=== PATIENT | male | born 1950 | race Caucasian/White ===

== ENCOUNTER 2017-10-06 03:16 | Emergency (ER) | payer MEDICARE ==
[~2017-10-06] VITALS: Ht 172.7 cm; Wt 119.0 kg
[~2017-10-06 03:16] MED LIST: ASPI-516 CHEW; ASPI81TA11 PO; ATEN-102 PO; ATEN25TA PO; BRIM0.2S EACH EYE; CHOL1TAB42 PO; DORZ1SOL2 EACH EYE; HYDR-2768 PO; HYDR-3580 PO; HYDR25TA5 PO; LATA0.00 EACH EYE; LATA0.002 EACH EYE; LISI40TA PO; MECL12.574 PO; PILO1SOL5 EACH EYE; VITA-13 PO; VITA200017 PO; Z.0.COMMODE-3:1; Z.0.WALKERFRONT; [UNRECOGNIZED DRUG - CODE] EACH EYE
[2017-10-06 03:23] VITALS: BP 157/76; PULSE 72; RESP 18; TEMP 97.4; O2SAT 95
[2017-10-06] MEDS ORDERED: VITA3000 PO (03:44)
[2017-10-06] MEDS ORDERED: BRIM0.2S4 EACH EYE (03:44)
[2017-10-06] MEDS ORDERED: MECL-62 PO (03:44)
[2017-10-06] MEDS ORDERED: AMLO2.5T PO (03:44)
[2017-10-06] MEDS ORDERED: METO25TA3 PO (03:44)
[2017-10-06] MEDS ORDERED: MORPHINE SULFATE 4 MG/ML INJ IV PUSH ONE (04:00)
[2017-10-06] MEDS ORDERED: ONDANSETRON HCL 4 MG/2 ML VIAL IVP ONE (04:00)
--- NOTE | 2017-10-06 04:03 | PD ---
HPI Chief Complaint: Abdominal Pain Time Seen by Provider: 03:45 Travel History International Travel<30 days: No Contact w/Intl Traveler<30days: No Traveled to known affect area: No History of Present Illness HPI 67yo M with PMH of HTN here with c/o abdominal pain since 10:30pm tonight. Said it is associated with nausea and located in epigastric and radiates from upper abdomen to upper scapula area. Said it is more left upper abdomen right right. Denies any fever, vomiting, chest pain, sob, diarrhea, dysuria, hematuria, testicular pain or penile discharge. Said he had similar pain before but not as severe. PFSH Past Medical History Arthritis: Yes Cancer: Yes (SKIN) Cardiovascular Problems: No Diminished Hearing: No Endocrine: No Glaucoma: Yes Genitourinary: No Hepatitis: No Hiatal Hernia: No Hypertension: Yes Immune Disorder: No Musculoskeletal: Yes (ARTHRITIS) Neurologic: No Psychiatric: Yes (ANXIETY) Reproductive: No Respiratory: No Immunizations Current: Yes Thyroid Disease: No Tetanus Vaccination: > 5 Years Influenza Vaccination: Yes ?: Not Past Surgical History AICD: No Body Medical Devices: NONE Eye Surgery: Yes (LASER SURGERY BILATERAL EYES) Joint Replacement: No Oral Surgery: Yes (TONSILLECTOMY) Pacemaker: No Other Surgery: Yes Social History Alcohol Use: No Tobacco Use: Yes (CIGARS/PIPE) Substance Use: No Allergies-Medications (Allergen,Severity, Reaction): Coded Allergies: No Known Allergies (Verified Adverse Reaction, Unknown, 10/06/17) Reported Meds & Prescriptions Reported Meds & Active Scripts Active Reported Brimonidine Opth Drops (Brimonidine Tartrate) 0.2% Soln 1 Drop EACH EYE BID Vitamin D3 (Cholecalciferol) 3,000 Unit Tab 3,000 Units PO DAILY Meclizine (Meclizine HCl) 25 Mg Tab 25 Mg PO DIRECTED PRN Amlodipine (Amlodipine Besylate) 2.5 Mg Tab 2.5 Mg PO DAILY Metoprolol Tartrate 25 Mg Tab 25 Mg PO BID Latanoprost Opth Drops (Latanoprost) 0.005% Drops 1 Drop EACH EYE HS Refrigerate until opened. Pilocarpine Opth 1% (Pilocarpine HCl) 1 % Soln 1 Drop EACH EYE Q6HR Aspirin 81 Mg Chew 81 Mg CHEW DAILY Hydrochlorothiazide 25 Mg Tab 25 Mg PO DAILY Lisinopril 40 Mg Tab 40 Mg PO DAILY Review of Systems Except as stated in HPI: all other systems reviewed are Neg Physical Exam Narrative GENERAL: 67yo M in mild distress. SKIN: Focused skin assessment warm/dry. HEAD: Atraumatic. Normocephalic. CARDIOVASCULAR: Regular rate and rhythm. No murmur appreciated. RESPIRATORY: No accessory muscle use. Clear to auscultation. Breath sounds equal bilaterally. GASTROINTESTINAL: Abdomen soft, +TTP epigastric and LUQ > RUQ. No rebound tenderness or guarding. BACK: No CVA tenderness bilaterally. No ttp bilateral scapula. MUSCULOSKELETAL: No obvious deformities. No clubbing. No cyanosis. No edema. NEUROLOGICAL: Awake and alert. No obvious cranial nerve deficits. Motor grossly within normal limits. Normal speech. PSYCHIATRIC: Appropriate mood and affect; insight and judgment normal. Data Data Last Documented VS Vital Signs Date Time Temp Pulse Resp B/P (MAP) Pulse Ox O2 Delivery O2 Flow Rate FiO2 10/06/17 05:34 77 18 119/59 (79) 95 Nasal Cannula 2.00 10/06/17 03:23 97.4 Orders Orders Complete Blood Count With Diff (10/06/17 03:55) Comprehensive Metabolic Panel (10/06/17 03:55) Lipase (10/06/17 03:55) Prothrombin Time / Inr (Pt) (10/06/17 03:55) Act Partial Throm Time (Ptt) (10/06/17 03:55) Urinalysis - C+S If Indicated (10/06/17 03:55) Ct Abd/Pel W Iv Contrast(Rout) (10/06/17 03:55) Morphine Inj (Morphine Inj) (10/06/17 04:00) Ondansetron Inj (Zofran Inj) (10/06/17 04:00) Iohexol 350 Inj (Omnipaque 350 Inj) (10/06/17 05:36) Morphine Inj (Morphine Inj) (10/06/17 06:00) Labs Laboratory Tests Test 10/06/17 04:03 10/06/17 05:21 White Blood Count 11.8 TH/MM3 Red Blood Count 5.14 MIL/MM3 Hemoglobin 15.4 GM/DL Hematocrit 46.6 % Mean Corpuscular Volume 90.7 FL Mean Corpuscular Hemoglobin 29.9 PG Mean Corpuscular Hemoglobin Concent 32.9 % Red Cell Distribution Width 12.7 % Platelet Count 349 TH/MM3 Mean Platelet Volume 8.2 FL Neutrophils (%) (Auto) 81.2 % Lymphocytes (%) (Auto) 10.5 % Monocytes (%) (Auto) 7.5 % Eosinophils (%) (Auto) 0.4 % Basophils (%) (Auto) 0.4 % Neutrophils # (Auto) 9.7 TH/MM3 Lymphocytes # (Auto) 1.2 TH/MM3 Monocytes # (Auto) 0.9 TH/MM3 Eosinophils # (Auto) 0.0 TH/MM3 Basophils # (Auto) 0.0 TH/MM3 CBC Comment DIFF FINAL Differential Comment Prothrombin Time 10.8 SEC Prothromb Time International Ratio 1.1 RATIO Activated Partial Thromboplast Time 25.3 SEC Blood Urea Nitrogen 18 MG/DL Creatinine 1.30 MG/DL Random Glucose 165 MG/DL Total Protein 8.0 GM/DL Albumin 3.8 GM/DL Calcium Level 9.3 MG/DL Alkaline Phosphatase 87 U/L Aspartate Amino Transf (AST/SGOT) 19 U/L Alanine Aminotransferase (ALT/SGPT) 25 U/L Total Bilirubin 0.5 MG/DL Sodium Level 131 MEQ/L Potassium Level 3.8 MEQ/L Chloride Level 93 MEQ/L Carbon Dioxide Level 34.2 MEQ/L Anion Gap 4 MEQ/L Estimat Glomerular Filtration Rate 55 ML/MIN Lipase 232 U/L Urine Color YELLOW Urine Turbidity CLEAR Urine pH 5.5 Urine Specific [place] GREATER THAN 1.035 Urine Protein NEG mg/dL Urine Glucose (UA) NEG mg/dL Urine Ketones NEG mg/dL Urine Occult Blood NEG Urine Nitrite NEG Urine Bilirubin NEG Urine Leukocyte Esterase NEG Urine WBC 0-2 /hpf Urine Squamous Epithelial Cells 0-5 /hpf Urine Hyaline Casts 3-5 /lpf Urine Mucus OCC /lpf Microscopic Urinalysis Comment CULT NOT INDICATED MDM Medical Decision Making Medical Screen Exam Complete: Yes Emergency Medical Condition: Yes Differential Diagnosis Pancreatitis vs. gastritis vs. peptic ulcer disease Narrative Course 67yo M with abdominal pain tonight. Labs reviewed, WBC 11.8. Mild hyponatremia at 131 which he has had before. Lipase normal. Mildly elevated CO2 which is also his baseline. UA showed no leukocyte. WBC 0-2. Culture not indicated. CT a/p showed moderate gaseous distension of the stomach without evidence for obstruction. Right adrenal adenoma. Atherosclerosis. Pt given morphine and zofran. Pt reevaluated at bedside and pain has improved. Tolerating PO. Return precautions given. Diagnosis Primary Impression: Abdominal pain Qualified Codes: R10.10 - Upper abdominal pain, unspecified Patient Instructions: General Instructions Departure Forms: Tests/Procedures Additional Instructions: Please follow up with your primary care physician in 2-3 days. Return to the ED if symptoms worsen. Med/Other Pt SpecificInfo: Prescription(s) given Scripts Calcium Carbonate-Simethicone (Maalox Advanced Maximum Strength) 1,000-60 Mg Chew 1 TAB CHEW TID Y for INDIGESTION OR UPSET STOMACH for 5 Days, TAB 0 Refills Prov: Nini Barahona DO 10/06/17 Disposition: 01 DISCHARGE HOME Condition: Stable Nini Barahona DO Oct 06, 2017 04:03
[2017-10-06 04:19] VITALS: BP 102/58; PULSE 64; RESP 18
[2017-10-06 04:37] LABS: CHLORIDE 93 MEQ/L (98-107); SODIUM (NA) 131 MEQ/L (136-145)
[2017-10-06 04:40] LABS: CALCIUM 9.3 MG/DL (8.5-10.1)
[2017-10-06 04:41] LABS: ALBUMIN 3.8 GM/DL (3.4-5.0); BICARBONATE 34.2 MEQ/L (21.0-32.0); BLOOD UREA NITROGEN 18 MG/DL (7-18); GLUCOSE,RANDOM 165 MG/DL (74-106)
[2017-10-06 04:42] LABS: AUTOMATED NEUTROPHIL # 9.7 TH/MM3 (1.8-7.7); BASOPHIL % 0.4 % (0.0-2.0); EOSINOPHIL % 0.4 % (0.0-4.0); HEMATOCRIT 46.6 % (39.0-51.0); HEMOGLOBIN 15.4 GM/DL (13.0-17.0); LYMPH % 10.5 % (9.0-44.0); LYMPHOCYTE # 1.2 TH/MM3 (1.0-4.8); MEAN CELL VOLUME 90.7 FL (80.0-100.0); MEAN CORPUSCULAR HEMOGLOBIN 29.9 PG (27.0-34.0); MEAN CORPUSCULAR HGB CONC 32.9 % (32.0-36.0); MEAN PLATELET VOLUME 8.2 FL (7.0-11.0); MONO % 7.5 % (0.0-8.0); MONOCYTE # 0.9 TH/MM3 (0-0.9); NEUT % 81.2 % (16.0-70.0); PLATELET COUNT 349 TH/MM3 (150-450); RED BLOOD COUNT 5.14 MIL/MM3 (4.50-5.90); RED CELL DISTRIBUTION WIDTH 12.7 % (11.6-17.2); WHITE BLOOD COUNT 11.8 TH/MM3 (4.0-11.0)
[2017-10-06 04:44] LABS: ALT (GPT) 25 U/L (12-78); AST (GOT) 19 U/L (15-37); GLOMERULAR FILTRATION RATE 55 ML/MIN (>89)
[2017-10-06 04:45] LABS: TOTAL BILIRUBIN ADULT 0.5 MG/DL (0.2-1.0)
[2017-10-06 04:46] LABS: ALKALINE PHOSPHATASE 87 U/L (45-117)
[2017-10-06 04:58] LABS: INTERNATIONAL NORMALIZED RATIO 1.1 RATIO; PROTHROMBIN TIME - PATIENT 10.8 SEC (9.8-11.6)
[2017-10-06 05:34] VITALS: BP 119/59; PULSE 77; RESP 18; O2SAT 95
[2017-10-06 05:34] LABS: BILIRUBIN, URINE NEG (NEG); BLOOD, URINE NEG (NEG); GLUCOSE,URINE NEG (NEG); KETONE, URINE NEG (NEG); NITRITE,URINE NEG (NEG); PH, URINE 5.5 (5.0-8.5); URINE LEUKOCYTE ESTERASE NEG (NEG)
[2017-10-06] MEDS ORDERED: IOHEXOL 350 MG/ML 10 ML VIAL (for RAD DIAG) IVCONTRAST ONE (05:36)
[2017-10-06 05:44] LABS: URINE COLOR YELLOW (YELLW/STRAW)
[2017-10-06 05:45] LABS: MUCUS URINE OCC /lpf (OCC); SQUAMOUS EPITHELIAL CELL URINE 0-5 /hpf (0-5); WBC, URINE 0-2 /hpf (0-5)
--- NOTE | 2017-10-06 05:55 | RADRPT ---
EXAM DATE/TIME: 10/06/2017 04:59 [facility] COMPARISON: No previous studies available for comparison. INDICATIONS : Epigastric pain. IV CONTRAST: 100 cc Omnipaque 350 (iohexol) IV ORAL CONTRAST: No oral contrast ingested. RADIATION DOSE: 22.40 CTDIvol (mGy) MEDICAL HISTORY : Hypertension. SURGICAL HISTORY : None. ENCOUNTER: Initial ACUITY: 1 day PAIN SCALE: 9/10 LOCATION: Left upper quadrant TECHNIQUE: Volumetric scanning of the abdomen and pelvis was performed. Using automated exposure control and ad justment of the mA and/or kV according to patient size, radiation dose was kept as low as reasonably achievable to obtain optimal diagnostic quality images. DICOM format image data is available electro nically for review and comparison. FINDINGS: Right hip arthroplasty. No pleural pericardial effusions. Liver, gallbladder, spleen, pancreas, left adrenal gland, bilateral kidneys are normal in appearance. There is a hypodense nodule of the lateral limb of the right adrenal gland measuring 1.3 cm felt to represent an adenoma. A few scattered ather osclerotic calcifications of the aorta and iliac vessels are noted. Prostate and bladder unremarkable . There is moderate gaseous distention of the stomach. Small bowel and appendix are unremarkable. The re are degenerative changes of the spine noted. Atelectatic changes at the lung bases. CONCLUSION: Moderate gaseous distention of the stomach without evidence for obstruction. Right adrenal adenoma. A therosclerosis. Chris Armstrong MD on October 06, 2017 at 5:51 Board Certified Radiologist. This report was verified electronically.
[2017-10-06] MEDS ORDERED: MORPHINE SULFATE 2 MG/ML INJ IV PUSH ONE (06:00)
[2017-10-06 06:06] VITALS: BP 119/56; PULSE 77; RESP 16; O2SAT 93
[2017-10-06] MEDS ORDERED: MAAL10003 CHEW (06:10)
[2017-10-06 06:56] VITALS: BP 124/60
== END 2017-10-06 06:58 | disposition home or self-care (01) ==
LOC: PHED 03:16
DX: R10.10 Upper abdominal pain, unspecified (principal); I10 Essential (primary) hypertension; M19.90 Unspecified osteoarthritis, unspecified site; Z85.828 Personal history of other malignant neoplasm of skin; Z72.0 Tobacco use
CPT/HCPCS: 74177; 80053; 81001; 83690; 85025; 85610; 85730; 96374; 96375; 99284; J2270; J2405; Q9967